=== PATIENT | female | born 1960 | race Caucasian/White ===

== ENCOUNTER 2016-07-11 21:18 | Emergency (ER) | payer SELFPAY ==
[~2016-07-11] VITALS: Ht 152.4 cm; Wt 50.0 kg
[~2016-07-11 21:18] MED LIST: DOXY100T PO; HYDR12.56 PO; HYDR25 PO; LISI-360 PO; PRED20 PO
[2016-07-11 21:24] VITALS: BP 206/104; PULSE 81; RESP 16; TEMP 98; O2SAT 96
[2016-07-11 21:39] VITALS: BP 198/93; PULSE 67; RESP 20; O2SAT 98
== END 2016-07-12 01:00 | disposition left against medical advice (07) ==
LOC: NED 21:18
DX: I10 Essential (primary) hypertension (principal)
CPT/HCPCS: 99281

== ENCOUNTER 2016-10-13 00:01 | Emergency (ER) | payer SELFPAY ==
[~2016-10-13] VITALS: Ht 157.5 cm; Wt 50.0 kg
[2016-10-13 00:10] VITALS: BP 139/70; PULSE 70; RESP 16; TEMP 97.4; O2SAT 100
[2016-10-13] MEDS ORDERED: ACET-898 (00:11)
[2016-10-13] MEDS ORDERED: METO50TA PO (00:11)
[2016-10-13] MEDS ORDERED: ALPR0.5T3 PO (00:11)
[2016-10-13] MEDS ORDERED: LISI40TA PO (00:11)
[2016-10-13] MEDS ORDERED: CLON0.1T PO (00:11)
[2016-10-13] MEDS ORDERED: CLON0.5T PO (00:11)
[2016-10-13] MEDS ORDERED: CHLO25TA2 PO (00:11)
[2016-10-13] MEDS ORDERED: SODIUM CHLOR 0.9% 1000 ML INJ 1,000 ML IV ONE (00:15)
--- NOTE | 2016-10-13 00:38 | PD ---
HPI Chief Complaint: Syncope/Near-Syncope Time Seen by Provider: 00:14 Travel History International Travel<30 days: No Contact w/Intl Traveler<30days: No Traveled to known affect area: No History of Present Illness HPI Patient is a 56-year-old female who presents to emergency room with complaints of syncopal episode. As per ems, patient spent the day outside in the sun on the beach today. Reports that she came home and began to drink alcohol. Reports that patient was sitting on the porch drinking a beer when she passed out. Family was able to catch patient prior to her fall. Patient did not suffer any trauma to her head/neck. Family reported that patient was hypotensive, when ems arrived on scene, patient was normotensive. Patient reports that she has been having problems of blood pressure medications for a while, reports that her blood pressure is either very high or very low, she has been self adjusting her medications and recently stopped taking her clonidine 0.1 mg. Denies any chest pain/sob. PFSH Past Medical History Diminished Hearing: No Hypertension: Yes ?: Not Menopausal: Yes Past Surgical History Cholecystectomy: Yes Social History Alcohol Use: Yes (OCCASIONAL) Tobacco Use: Yes (1/2 PPD) Substance Use: No Allergies-Medications (Allergen,Severity, Reaction): Coded Allergies: amoxicillin (Unverified Allergy, Severe, HIVES, 10/13/16) latex (Unverified Allergy, Severe, Shortness of Breath, 10/13/16) Reported Meds & Prescriptions Reported Meds & Active Scripts Active Reported Chlorthalidone 25 Mg Tab 25 Mg PO DAILY Acetaminophen Extra Strength (Acetaminophen) 500 Mg Tablet Clonazepam 0.5 Mg Tab 0.5 Mg PO BID Metoprolol Tartrate 50 Mg Tab 50 Mg PO BID Lisinopril 40 Mg Tab 40 Mg PO DAILY Alprazolam 0.5 Mg Tab 0.5 Mg PO BID PRN Clonidine (Clonidine HCl) 0.1 Mg Tab 0.1 Mg PO BID Review of Systems General / Constitutional: No: Fever Eyes: No: Visual changes HENT: No: Headaches Cardiovascular: Positive: Syncope, No: Chest Pain or Discomfort Respiratory: No: Shortness of Breath Gastrointestinal: No: Abdominal Pain Genitourinary: No: Dysuria Musculoskeletal: No: Pain Skin: No Rash Neurologic: No: Weakness Psychiatric: Positive: Substance Abuse, No: Depression Endocrine: No: Polydipsia Hematologic/Lymphatic: No: Easy Bruising Physical Exam Narrative GENERAL: Patient intoxicated in the emergency room SKIN: Focused skin assessment warm/dry. HEAD: Atraumatic. Normocephalic. EYES: Pupils equal and round. No scleral icterus. No injection or drainage. ENT: No nasal bleeding or discharge. Mucous membranes pink and moist. NECK: Trachea midline. No JVD. CARDIOVASCULAR: Regular rate and rhythm. No murmur appreciated. RESPIRATORY: No accessory muscle use. Clear to auscultation. Breath sounds equal bilaterally. GASTROINTESTINAL: Abdomen soft, non-tender, nondistended. Hepatic and splenic margins not palpable. MUSCULOSKELETAL: No obvious deformities. No clubbing. No cyanosis. No edema. NEUROLOGICAL: Awake and alert. No obvious cranial nerve deficits. Motor grossly within normal limits. Normal speech. PSYCHIATRIC: Patient intoxicated on evaluation Data Data Last Documented VS Vital Signs Date Time Temp Pulse Resp B/P Pulse Ox O2 Delivery O2 Flow Rate FiO2 10/13/16 00:10 97.4 70 16 139/70 100 Orders Complete Blood Count With Diff (10/13/16:14) Comprehensive Metabolic Panel (10/13/16 00:14) Urinalysis - C+S If Indicated (10/13/16 00:14) Oximetry (10/13/16 00:14) Iv Access Insert/Monitor (10/13/16:14) Ecg Monitoring (10/13/16 00:14) Drug Screen, Random Urine (10/13/16 00:14) Alcohol (Ethanol) (10/13/16 00:14) Electrocardiogram (10/13/16 00:14) B-Type Natriuretic Peptide (10/13/16 00:14) Ckmb (Isoenzyme) Profile (10/13/16 00:14) Magnesium (Mg) (10/13/16 00:14) Prothrombin Time / Inr (Pt) (10/13/16 00:14) Act Partial Throm Time (Ptt) (10/13/16 00:14) Troponin I (10/13/16 00:14) Chest, Single Ap (10/13/16 00:14) Ct Brain W/O Iv Contrast(Rout) (10/13/16 00:14) Sodium Chlor 0.9% 1000 Ml Inj (Ns 1000 M (10/13/16 00:15) CKMB (10/13/16 00:22) CKMB% (10/13/16 00:22) Potassium Chloride (Kcl) (10/13/16 01:45) Potassium Chlor 20 Meq Premix (Kcl 20 Me (10/13/16 01:45) Labs Laboratory Tests Test 10/13/16 10/13/16 10/13/16 00:14 00:22 02:33 White Blood Count 6.3 TH/MM3 Red Blood Count 3.60 MIL/MM3 Hemoglobin 12.0 GM/DL Hematocrit 34.0 % Mean Corpuscular Volume 94.4 FL Mean Corpuscular Hemoglobin 33.3 PG Mean Corpuscular Hemoglobin 35.3 % Concent Red Cell Distribution Width 14.0 % Platelet Count 309 TH/MM3 Mean Platelet Volume 6.8 FL Neutrophils (%) (Auto) 43.5 % Lymphocytes (%) (Auto) 43.5 % Monocytes (%) (Auto) 9.3 % Eosinophils (%) (Auto) 2.5 % Basophils (%) (Auto) 1.2 % Neutrophils # (Auto) 2.8 TH/MM3 Lymphocytes # (Auto) 2.7 TH/MM3 Monocytes # (Auto) 0.6 TH/MM3 Eosinophils # (Auto) 0.2 TH/MM3 Basophils # (Auto) 0.1 TH/MM3 CBC Comment DIFF FINAL Differential Comment Prothrombin Time 11.2 SEC Prothromb Time International 1.0 RATIO Ratio Activated Partial 27.5 SEC Thromboplast Time Sodium Level 127 MEQ/L Potassium Level 2.7 MEQ/L Chloride Level 88 MEQ/L Carbon Dioxide Level 24.1 MEQ/L Anion Gap 15 MEQ/L Blood Urea Nitrogen 8 MG/DL Creatinine 0.87 MG/DL Estimat Glomerular Filtration 68 ML/MIN Rate Random Glucose 93 MG/DL Calcium Level 8.1 MG/DL Magnesium Level 1.6 MG/DL Total Bilirubin 0.4 MG/DL Aspartate Amino Transf 35 U/L (AST/SGOT) Alanine Aminotransferase 19 U/L (ALT/SGPT) Alkaline Phosphatase 89 U/L Total Creatine Kinase 222 U/L Creatine Kinase MB 5.3 NG/ML Creatine Kinase MB % 2.4 % Troponin I 0.02 NG/ML B-Type Natriuretic Peptide 49 PG/ML Total Protein 6.4 GM/DL Albumin 3.0 GM/DL Ethyl Alcohol Level 175 MG/DL Urine Color LIGHT-YELLOW Urine Turbidity CLEAR Urine pH 6.5 Urine Specific [place] 1.005 Urine Protein NEG mg/dL Urine Glucose (UA) NEG mg/dL Urine Ketones NEG mg/dL Urine Occult Blood NEG Urine Nitrite NEG Urine Bilirubin NEG Urine Urobilinogen LESS THAN 2.0 MG/DL Urine Leukocyte Esterase MOD Urine RBC 1 /hpf Urine WBC 1 /hpf Urine Squamous Epithelial 1 /hpf Cells Urine Bacteria RARE /hpf Microscopic Urinalysis Comment CULT NOT INDICATED MDM Medical Decision Making Medical Screen Exam Complete: Yes Emergency Medical Condition: Yes Interpretation(s) EKG at 0014: NSR at 66bpm, qt/qtc: 460/474, 1st degree av block, no acute changes, Vital Signs Date Time Temp Pulse Resp B/P Pulse Ox O2 Delivery O2 Flow Rate FiO2 10/13/16 00:10 97.4 70 16 139/70 100 Differential Diagnosis Differential includes electrolyte abnormality, arrhythmia, ACS, alcohol intoxication, dehydration, uti Narrative Course Patient is a 56 year old female who presents to ER with c/o of syncopal episode. As per EMS, patient has been outside on the beach all day, reports that she came home and began drinking alcohol. Patient had a witnessed syncopal episode while on her porch, her family did catch her prior to her fall. Patient has been self adjusting her hypertension medications and recently stopped taking her clonidine. patient intoxicated in the ER. she was placed on a playground monitor upon arrival to ER. EKG obtained. plan to check labs and monitor on playground monitor Vital Signs Date Time Temp Pulse Resp B/P Pulse Ox O2 Delivery O2 Flow Rate FiO2 10/13/16 00:10 97.4 70 16 139/70 100 Laboratory Tests Test 10/13/16 10/13/16 10/13/16 00:14 00:22 02:33 White Blood Count 6.3 TH/MM3 (4.0-11.0) Red Blood Count 3.60 MIL/MM3 (4.00-5.30) Hemoglobin 12.0 GM/DL (11.6-15.3) Hematocrit 34.0 % (35.0-46.0) Mean Corpuscular Volume 94.4 FL (80.0-100.0) Mean Corpuscular Hemoglobin 33.3 PG (27.0-34.0) Mean Corpuscular Hemoglobin 35.3 % Concent (32.0-36.0) Red Cell Distribution Width 14.0 % (11.6-17.2) Platelet Count 309 TH/MM3 (150-450) Mean Platelet Volume 6.8 FL (7.0-11.0) Neutrophils (%) (Auto) 43.5 % (16.0-70.0) Lymphocytes (%) (Auto) 43.5 % (9.0-44.0) Monocytes (%) (Auto) 9.3 % (0.0-8.0) Eosinophils (%) (Auto) 2.5 % (0.0-4.0) Basophils (%) (Auto) 1.2 % (0.0-2.0) Neutrophils # (Auto) 2.8 TH/MM3 (1.8-7.7) Lymphocytes # (Auto) 2.7 TH/MM3 (1.0-4.8) Monocytes # (Auto) 0.6 TH/MM3 (0-0.9) Eosinophils # (Auto) 0.2 TH/MM3 (0-0.4) Basophils # (Auto) 0.1 TH/MM3 (0-0.2) CBC Comment DIFF FINAL Differential Comment Prothrombin Time 11.2 SEC (9.8-11.6) Prothromb Time International 1.0 RATIO Ratio Activated Partial 27.5 SEC Thromboplast Time (24.3-30.1) Sodium Level 127 MEQ/L (136-145) Potassium Level 2.7 MEQ/L (3.5-5.1) Chloride Level 88 MEQ/L (98-107) Carbon Dioxide Level 24.1 MEQ/L (21.0-32.0) Anion Gap 15 MEQ/L (5-15) Blood Urea Nitrogen 8 MG/DL (7-18) Creatinine 0.87 MG/DL (0.50-1.00) Estimat Glomerular Filtration 68 ML/MIN (>89) Rate Random Glucose 93 MG/DL (74-106) Calcium Level 8.1 MG/DL (8.5-10.1) Magnesium Level 1.6 MG/DL (1.5-2.5) Total Bilirubin 0.4 MG/DL (0.2-1.0) Aspartate Amino Transf 35 U/L (15-37) (AST/SGOT) Alanine Aminotransferase 19 U/L (10-53) (ALT/SGPT) Alkaline Phosphatase 89 U/L (45-117) Total Creatine Kinase 222 U/L (26-192) Creatine Kinase MB 5.3 NG/ML (0.5-3.6) Creatine Kinase MB % 2.4 % (0.0-4.0) Troponin I 0.02 NG/ML (0.02-0.05) B-Type Natriuretic Peptide 49 PG/ML (0-100) Total Protein 6.4 GM/DL (6.4-8.2) Albumin 3.0 GM/DL (3.4-5.0) Ethyl Alcohol Level 175 MG/DL (0-5) Urine Color LIGHT-YELLOW (YELLW/STRAW) Urine Turbidity CLEAR (CLEAR) Urine pH 6.5 (5.0-8.5) Urine Specific [place] 1.005 (1.002-1.035) Urine Protein NEG mg/dL (NEG-TRACE) Urine Glucose (UA) NEG mg/dL (NEG) Urine Ketones NEG mg/dL (NEG) Urine Occult Blood NEG (NEG) Urine Nitrite NEG (NEG) Urine Bilirubin NEG (NEG) Urine Urobilinogen LESS THAN 2.0 MG/DL (LESS THAN 2.0) Urine Leukocyte Esterase MOD (NEG) Urine RBC 1 /hpf (0-3) Urine WBC 1 /hpf (0-5) Urine Squamous Epithelial 1 /hpf (0-5) Cells Urine Bacteria RARE /hpf (NONE) Microscopic Urinalysis Comment CULT NOT INDICATED Patient refusing further workup as "I have had everything done 2 months ago and it was all negative." I reviewed why all the studies ordered are necessary - patient refuses these studies. I did review resulted labs with her, she will return to ER as needed and will follow up with pcp. AMA: The risks of leaving against medical advice without further evaluation treatment were discussed with the patient. These risks include cardiac dysfunction, cardiac dysrhythmia, possible heart attack, possible stroke or . The patient indicated understanding of these risks and appeared to have the capacity to make this decision. Diagnosis Primary Impression: Left against medical advice Additional Impressions: Syncope Hypokalemia Patient Instructions: General Instructions Additional Instructions: Please follow up with your primary care doctor as soon as possible Return to ER as needed or if symptoms return Disposition: 07 AGAINST MEDICAL ADVICE Condition: Serious DeepakKenyettaKierra L DO Oct 13, 2016 00:38
[2016-10-13 00:49] LABS: AUTOMATED NEUTROPHIL # 2.8 TH/MM3 (1.8-7.7); BASOPHIL # 0.1 TH/MM3 (0-0.2); BASOPHIL % 1.2 % (0.0-2.0); EOSINOPHIL # 0.2 TH/MM3 (0-0.4); EOSINOPHIL % 2.5 % (0.0-4.0); HEMO FLAGS DIFF FINAL; LYMPH % 43.5 % (9.0-44.0); LYMPHOCYTE # 2.7 TH/MM3 (1.0-4.8); MEAN CELL VOLUME 94.4 FL (80.0-100.0); MEAN CORPUSCULAR HEMOGLOBIN 33.3 PG (27.0-34.0); MEAN CORPUSCULAR HGB CONC 35.3 % (32.0-36.0); MONO % 9.3 % (0.0-8.0); NEUT % 43.5 % (16.0-70.0); PLATELET COUNT 309 TH/MM3 (150-450); WHITE BLOOD COUNT 6.3 TH/MM3 (4.0-11.0)
[2016-10-13 00:59] LABS: APTT (PATIENT) 27.5 SEC (24.3-30.1); PROTHROMBIN TIME - PATIENT 11.2 SEC (9.8-11.6)
[2016-10-13 01:30] LABS: ALKALINE PHOSPHATASE 89 U/L (45-117); ALT (GPT) 19 U/L (10-53); ANION GAP 15 MEQ/L (5-15); AST (GOT) 35 U/L (15-37); BICARBONATE 24.1 MEQ/L (21.0-32.0); BLOOD UREA NITROGEN 8 MG/DL (7-18); CHLORIDE 88 MEQ/L (98-107); CREATINE KINASE 222 U/L (26-192); GLOMERULAR FILTRATION RATE 68 ML/MIN (>89); MAGNESIUM 1.6 MG/DL (1.5-2.5); SODIUM (NA) 127 MEQ/L (136-145); TOTAL BILIRUBIN ADULT 0.4 MG/DL (0.2-1.0)
[2016-10-13 01:33] LABS: ALCOHOL 175 MG/DL (0-5)
[2016-10-13 01:36] LABS: POTASSIUM 2.7 MEQ/L (3.5-5.1)
[2016-10-13] MEDS ORDERED: POTASSIUM CHLORIDE 10 MEQ CONTROLLED RELEASE TAB PO ONE (01:45)
[2016-10-13 01:50] LABS: CKMB 5.3 NG/ML (0.5-3.6)
--- NOTE | 2016-10-13 01:52 | RADRPT ---
EXAM DATE/TIME: 10/13/2016 01:33 [facility] COMPARISON: CHEST SINGLE AP, December 16, 2013, 15:27. INDICATIONS : Chest pain all day MEDICAL HISTORY : Hypertension. SURGICAL HISTORY : Cholecystectomy. ENCOUNTER: Initial ACUITY: 1 day PAIN SCORE: Non-responsive. LOCATION: Bilateral chest FINDINGS: A single view of the chest demonstrates the lungs to be symmetrically aerated without evidence of mas s, infiltrate or effusion. Minimal atelectatic changes above the right hemidiaphragm laterally. No e ffusions. Heart size is normal. Osseous structures are intact. Surgical clips in the right upper abdo tom quadrant are characteristic of prior cholecystectomy. CONCLUSION: 1. Minimal atelectatic changes laterally in the right lower lobe. 2. Lungs are otherwise clear. No effusions. Antwon Regalado MD on October 13, 2016 at 1:49 Board Certified Radiologist. This report was verified electronically.
[2016-10-13] MEDS: POTASSIUM CHLOR 20 MEQ PREMIX 100 ML IV SCH ×2 (02:33→04:47)
[2016-10-13 02:44] LABS: BACTERIA, URINE RARE /hpf; BLOOD, URINE NEG (NEG); COMMENT (UR) CULT NOT INDICATED; CULTURE IF INDICATED CULT NOT INDICATED; GLUCOSE,URINE NEG (NEG); KETONE, URINE NEG (NEG); NITRITE,URINE NEG (NEG); PH, URINE 6.5 (5.0-8.5); SQUAMOUS EPITHELIAL CELL URINE 1 /hpf (0-5); URINE COLOR LIGHT-YELLOW (YELLW/STRAW)
[2016-10-13 03:15] VITALS: BP 100/65; PULSE 70; RESP 18; O2SAT 97
--- NOTE | 2016-10-13 15:11 | EKG ---
Date Performed: 10/13/2016 Time Performed: 00:14:03 PTAGE: 56 years EKG: Sinus rhythm WITH FIRST DEGREE AV BLOCK MINIMAL VOLTAGE CRITERIA FOR LVH, CONSIDER NORMAL VARIANT PROLONGED QT IN TERVAL Compared to previous tracing, QT interval is somewhat more prolonged and MI interval is somewh at longer ABNORMAL ECG PREVIOUS TRACING : 09/29/2015 22.25 DOCTOR: Monty Watson Interpretating Date/Time 10/13/2016 15:10:13
== END 2016-10-13 06:30 | disposition left against medical advice (07) ==
LOC: NEPC 00:01
DX: R55 Syncope and collapse (principal); E87.6 Hypokalemia; I10 Essential (primary) hypertension
CPT/HCPCS: 71010; 80053; 80307; 81001; 82550; 82552; 83735; 83880; 84484; 85025; 85610; 85730; 93005; 96360; 96361; 99285; J3480; J7030

== ENCOUNTER 2016-11-29 22:07 | Emergency (ER) | payer SELFPAY ==
[~2016-11-29] VITALS: Ht 157.5 cm; Wt 50.0 kg
[~2016-11-29 22:07] MED LIST changes: +ACET-898; +ALPR0.5T3 PO; +CHLO25TA2 PO; +CLON0.1T PO; +CLON0.5T PO; -DOXY100T PO; -HYDR12.56 PO; -HYDR25 PO; -LISI-360 PO; +LISI40TA PO; +METO50TA PO; -PRED20 PO
[2016-11-29 22:19] VITALS: BP 228/114; PULSE 80; RESP 16; TEMP 98.3; O2SAT 98
[2016-11-29 23:00] VITALS: BP 208/109; PULSE 71; RESP 16; O2SAT 96
[2016-11-29] MEDS ORDERED: FLUO10TA PO (23:09)
--- NOTE | 2016-11-29 23:26 | PD ---
HPI Chief Complaint: Hypertension Time Seen by Provider: 22:59 Travel History International Travel<30 days: No Contact w/Intl Traveler<30days: No Traveled to known affect area: No History of Present Illness HPI The patient is a 56-year-old female who presents to the emergency department for 3 days of headache and elevated blood pressure. The patient has a history of hypertension and was previously being treated by her physician, Dr. José. The patient is on multiple medications for her blood pressure, however, states she lost approximately 20-30 pounds. The patient then saw a new physician, Dr. Eddy, who reviewed her medications and took her off several of her blood pressure medications. The patient states she was feeling well for approximately one month, however, 3 days ago developed a headache. Headache is located in the posterior aspect of the head, throbbing and dull, and associated with generalized weakness. The patient denies any chest pain, shortness breath , nausea, vomiting, or abdominal pain. She denies any change in vision. The patient is currently on lisinopril and metoprolol. The patient cannot recall the previous medication she was on, however, does state one of was a diuretic. Patient denies any acute focal deficits. PFSH Past Medical History Cardiovascular Problems: Yes (HTN) Diminished Hearing: No Hypertension: Yes ?: Not Menopausal: Yes Past Surgical History Cholecystectomy: Yes Social History Alcohol Use: Yes (1-2 BEERS DAILY) Tobacco Use: Yes (1/2 PPD) Substance Use: No Allergies-Medications (Allergen,Severity, Reaction): Coded Allergies: amoxicillin (Unverified Allergy, Severe, HIVES, 11/29/16) latex (Unverified Allergy, Severe, Shortness of Breath, 11/29/16) Reported Meds & Prescriptions Reported Meds & Active Scripts Active Reported Fluoxetine (Fluoxetine HCl) 10 Mg Tab 10 Mg PO DAILY Metoprolol Tartrate 50 Mg Tab 50 Mg PO BID Lisinopril 40 Mg Tab 40 Mg PO DAILY Review of Systems Except as stated in HPI: all other systems reviewed are Neg Eyes: No: Blurred Vision HENT: Positive: Headaches, No: Neck Pain Cardiovascular: No: Chest Pain or Discomfort Respiratory: No: Shortness of Breath Gastrointestinal: No: Nausea, Vomiting Musculoskeletal: Positive: Weakness Neurologic: Positive: Weakness Physical Exam Narrative GENERAL: Awake, alert, nontoxic-appearing 36 year-old female who appears her stated age and is in no acute respiratory distress. SKIN: Focused skin assessment warm/dry. HEAD: Atraumatic. Normocephalic. EYES: Pupils equal and round. Pupils are 3 mm is bilateral and reactive. EOMs are intact. Patient is able to see fingers at a distance of 2 feet without difficulty. ENT: No nasal bleeding or discharge. Mucous membranes pink and moist. Breath smells of cigarettes. NECK: Trachea midline. No JVD. CARDIOVASCULAR: Regular rate and rhythm. No murmur appreciated. RESPIRATORY: No accessory muscle use. Clear to auscultation. Breath sounds equal bilaterally. GASTROINTESTINAL: Abdomen soft, non-tender, nondistended. MUSCULOSKELETAL: No obvious deformities. No clubbing. No cyanosis. No edema. NEUROLOGICAL: Awake and alert. No obvious cranial nerve deficits. Motor grossly within normal limits. Normal speech. Nonfocal on exam. Able to follow commands without difficulty. PSYCHIATRIC: Odd affect. Data Data Last Documented VS Vital Signs Date Time Temp Pulse Resp B/P (MAP) Pulse Ox O2 Delivery O2 Flow Rate FiO2 11/30/16 01:36 50 16 149/68 (95) 94 Nasal Cannula 2.00 11/29/16 22:[address] Brain W/O Iv Contrast(Rout) (11/29/16 ) Complete Blood Count With Diff (11/29/16 23:18) Comprehensive Metabolic Panel (11/29/16 23:18) Creatine Kinase (Cpk) (11/29/16 23:18) Troponin I (11/29/16 23:18) Electrocardiogram (11/29/16 ) Labetalol Inj (Trandate Inj) (11/29/16 23:30) Morphine Inj (Morphine Inj) (11/29/16 23:30) Prochlorperazine Inj (Compazine Inj) (11/29/16 23:30) Diphenhydramine Inj (Benadryl Inj) (11/29/16 23:30) Sodium Chlorid 0.9% 500 Ml Inj (Ns 500 M (11/29/16 23:30) Amlodipine (Norvasc) (11/30/16 00:45) Sodium Chlor 0.9% 1000 Ml Inj (Ns 1000 M (11/30/16 00:45) Sodium Chlor 0.9% 1000 Ml Inj (Ns 1000 M (11/30/16 01:30) Labs Laboratory Tests Test 11/29/16 23:30 White Blood Count 6.7 TH/MM3 Red Blood Count 4.17 MIL/MM3 Hemoglobin 14.2 GM/DL Hematocrit 41.1 % Mean Corpuscular Volume 98.7 FL Mean Corpuscular Hemoglobin 34.0 PG Mean Corpuscular Hemoglobin Concent 34.5 % Red Cell Distribution Width 14.1 % Platelet Count 331 TH/MM3 Mean Platelet Volume 7.0 FL Neutrophils (%) (Auto) 44.8 % Lymphocytes (%) (Auto) 41.0 % Monocytes (%) (Auto) 8.0 % Eosinophils (%) (Auto) 5.3 % Basophils (%) (Auto) 0.9 % Neutrophils # (Auto) 3.0 TH/MM3 Lymphocytes # (Auto) 2.7 TH/MM3 Monocytes # (Auto) 0.5 TH/MM3 Eosinophils # (Auto) 0.4 TH/MM3 Basophils # (Auto) 0.1 TH/MM3 CBC Comment DIFF FINAL Differential Comment Blood Urea Nitrogen 8 MG/DL Creatinine 0.86 MG/DL Random Glucose 103 MG/DL Total Protein 8.8 GM/DL Albumin 4.0 GM/DL Calcium Level 9.5 MG/DL Alkaline Phosphatase 167 U/L Aspartate Amino Transf (AST/SGOT) 60 U/L Alanine Aminotransferase (ALT/SGPT) 36 U/L Total Bilirubin 0.3 MG/DL Sodium Level 132 MEQ/L Potassium Level 3.3 MEQ/L Chloride Level 97 MEQ/L Carbon Dioxide Level 27.1 MEQ/L Anion Gap 8 MEQ/L Estimat Glomerular Filtration Rate 69 ML/MIN Total Creatine Kinase 129 U/L Troponin I LESS THAN 0.02 NG/ML MDM Medical Decision Making Medical Screen Exam Complete: Yes Emergency Medical Condition: Yes Medical Record Reviewed: Yes Interpretation(s) EKG reveals sinus bradycardia with a heart rate of 50. Voltage criteria for LVH. CT of the brain reveals normal examination Last Impressions Head CT 11/29/16 0000 Signed Impressions: Service Date/Time: Tuesday, November 29, 2016 23:27 - CONCLUSION: Normal examination. Alton Rogers Jr., MD Laboratory Tests Test 11/29/16 23:30 White Blood Count 6.7 TH/MM3 Red Blood Count 4.17 MIL/MM3 Hemoglobin 14.2 GM/DL Hematocrit 41.1 % Mean Corpuscular Volume 98.7 FL Mean Corpuscular Hemoglobin 34.0 PG Mean Corpuscular Hemoglobin Concent 34.5 % Red Cell Distribution Width 14.1 % Platelet Count 331 TH/MM3 Mean Platelet Volume 7.0 FL Neutrophils (%) (Auto) 44.8 % Lymphocytes (%) (Auto) 41.0 % Monocytes (%) (Auto) 8.0 % Eosinophils (%) (Auto) 5.3 % Basophils (%) (Auto) 0.9 % Neutrophils # (Auto) 3.0 TH/MM3 Lymphocytes # (Auto) 2.7 TH/MM3 Monocytes # (Auto) 0.5 TH/MM3 Eosinophils # (Auto) 0.4 TH/MM3 Basophils # (Auto) 0.1 TH/MM3 CBC Comment DIFF FINAL Differential Comment Blood Urea Nitrogen 8 MG/DL Creatinine 0.86 MG/DL Random Glucose 103 MG/DL Total Protein 8.8 GM/DL Albumin 4.0 GM/DL Calcium Level 9.5 MG/DL Alkaline Phosphatase 167 U/L Aspartate Amino Transf (AST/SGOT) 60 U/L Alanine Aminotransferase (ALT/SGPT) 36 U/L Total Bilirubin 0.3 MG/DL Sodium Level 132 MEQ/L Potassium Level 3.3 MEQ/L Chloride Level 97 MEQ/L Carbon Dioxide Level 27.1 MEQ/L Anion Gap 8 MEQ/L Estimat Glomerular Filtration Rate 69 ML/MIN Total Creatine Kinase 129 U/L Troponin I LESS THAN 0.02 NG/ML Differential Diagnosis Differential diagnosis includes hypertension, hypertensive urgency, hypertensive emergency, intracranial hemorrhage, subarachnoid hemorrhage, noncompliance, tension headache, migraine. Narrative Course IV was established, labs are drawn and sent, and the patient was placed on cardiac telemetry monitoring and continuous pulse oximetry monitoring. EKG was ordered and interpreted. CT the brain was obtained. The patient received labetalol, morphine, Compazine, Benadryl, and IV fluids. The patient's CT the brain is negative. The patient's blood pressure did drop after medications were given to a systolic in the 80s. The patient was administered IV fluids, she was sleeping and resting comfortably. Her pressure came back up into the 160s/90s, she is stable for outpatient follow-up. She will be provided a copy of her CT results and lab results at discharge. The patient's potassium was slightly low, was replaced orally. Diagnosis Primary Impression: Hypertensive urgency Additional Impressions: Cephalgia Qualified Codes: R51 - Headache Hypokalemia Patient Instructions: General Instructions Additional Instructions: Please provide a patient a copy of her CT results and lab results at discharge. Follow-up with her primary physician. Return if symptoms worsen or progress. Med/Other Pt SpecificInfo: No Change to Meds Disposition: 01 DISCHARGE HOME Condition: Stable Reg Moran MD Nov 29, 2016 23:26
[2016-11-29] MEDS ORDERED: LABETALOL HCL 100 MG/20 ML VIAL IV PUSH ONE (23:30)
[2016-11-29] MEDS ORDERED: SODIUM CHLORID 0.9% 500 ML INJ 500 ML IV ONE (23:30)
[2016-11-29] MEDS ORDERED: diphenhydrAMINE HCL 50 MG/ML VIAL IV PUSH ONE (23:30)
[2016-11-29] MEDS ORDERED: MORPHINE SULFATE 4 MG/ML INJ IV PUSH ONE (23:30)
[2016-11-29] MEDS ORDERED: PROCHLORPERAZINE INJ 10 MG/2 ML VIAL IV PUSH ONE (23:30)
[2016-11-29 23:42] LABS: BASOPHIL # 0.1 TH/MM3 (0-0.2); BASOPHIL % 0.9 % (0.0-2.0); EOSINOPHIL # 0.4 TH/MM3 (0-0.4); EOSINOPHIL % 5.3 % (0.0-4.0); HEMATOCRIT 41.1 % (35.0-46.0); HEMO FLAGS DIFF FINAL; LYMPHOCYTE # 2.7 TH/MM3 (1.0-4.8); MEAN CELL VOLUME 98.7 FL (80.0-100.0); MEAN CORPUSCULAR HGB CONC 34.5 % (32.0-36.0); NEUT % 44.8 % (16.0-70.0); PLATELET COUNT 331 TH/MM3 (150-450); RED BLOOD COUNT 4.17 MIL/MM3 (4.00-5.30); RED CELL DISTRIBUTION WIDTH 14.1 % (11.6-17.2); WHITE BLOOD COUNT 6.7 TH/MM3 (4.0-11.0)
--- NOTE | 2016-11-29 23:50 | RADRPT ---
EXAM DATE/TIME: 11/29/2016 23:27 [facility] COMPARISON: No previous studies available for comparison. INDICATIONS : Headaches with high blood pressure past 3 days. RADIATION DOSE: 56.35 CTDIvol (mGy) MEDICAL HISTORY : Hypertension. SURGICAL HISTORY : Cholecystectomy. ENCOUNTER: Initial ACUITY: 3 days PAIN SCALE: 10/10 LOCATION: Bilateral cranial TECHNIQUE: Multiple contiguous axial images were obtained of the head. Using automated exposure control and adj ustment of the mA and/or kV according to patient size, radiation dose was kept as low as reasonably a chievable to obtain optimal diagnostic quality images. DICOM format image data is available electro nically for review and comparison. FINDINGS: CEREBRUM: The ventricles are normal for age. No evidence of midline shift, mass lesion, hemorrhage or acute in farction. No extra-axial fluid collections are seen. POSTERIOR FOSSA: The cerebellum and brainstem are intact. The 4th ventricle is midline. The cerebellopontine angle i s unremarkable. EXTRACRANIAL: The visualized portion of the orbits is intact. SKULL: The calvaria is intact. No evidence of skull fracture. CONCLUSION: Normal examination. Alton Rogers Jr., MD on November 29, 2016 at 23:48 Board Certified Radiologist. This report was verified electronically.
[2016-11-29 23:55] VITALS: BP 188/102; PULSE 64; RESP 16; O2SAT 96
[2016-11-30] VITALS: BP 145/65; PULSE 60
[2016-11-30 00:07] LABS: ALT (GPT) 36 U/L (10-53); ANION GAP 8 MEQ/L (5-15); AST (GOT) 60 U/L (15-37); BICARBONATE 27.1 MEQ/L (21.0-32.0); BLOOD UREA NITROGEN 8 MG/DL (7-18); CHLORIDE 97 MEQ/L (98-107); GLOMERULAR FILTRATION RATE 69 ML/MIN (>89); POTASSIUM 3.3 MEQ/L (3.5-5.1); SODIUM (NA) 132 MEQ/L (136-145)
[2016-11-30 00:11] LABS: ALKALINE PHOSPHATASE 167 U/L (45-117); CREATINE KINASE 129 U/L (26-192); TOTAL BILIRUBIN ADULT 0.3 MG/DL (0.2-1.0)
[2016-11-30 00:15] VITALS: BP 97/52; PULSE 58
[2016-11-30 00:42] VITALS: BP 85/52; PULSE 63
[2016-11-30] MEDS ORDERED: SODIUM CHLOR 0.9% 1000 ML INJ 1,000 ML IV ONE ×2 (00:45→01:30)
[2016-11-30 01:29] VITALS: BP 167/120; PULSE 60; RESP 16; O2SAT 92
[2016-11-30 01:36] VITALS: BP 149/68; PULSE 50; RESP 16; O2SAT 94
[2016-11-30] MEDS ORDERED: POTASSIUM CHLORIDE 20 MEQ CONTROLLED RELEASE TAB PO ONE (01:45)
[2016-11-30 01:51] VITALS: BP 116/57; PULSE 57; RESP 16; O2SAT 98
--- NOTE | 2016-11-30 14:24 | EKG ---
Date Performed: 11/29/2016 Time Performed: 23:49:25 PTAGE: 56 years EKG: SINUS BRADYCARDIA VOLTAGE CRITERIA FOR LVH ABNORMAL ECG PREVIOUS TRACING : 10/13/2016 00.14 DOCTOR: Nadir Block Interpretating Date/Time 11/30/2016 14:17:12
== END 2016-11-30 02:11 | disposition home or self-care (01) ==
LOC: NEPE 22:07
DX: R51 Headache (principal); R53.1 Weakness; E87.6 Hypokalemia; I10 Essential (primary) hypertension; R00.1 Bradycardia, unspecified; F17.200 Nicotine dependence, unspecified, uncomplicated; Z79.899 Other long term (current) drug therapy; Z88.0 Allergy status to penicillin
CPT/HCPCS: 70450; 80053; 82550; 84484; 85025; 93005; 96361; 96374; 96375; 99285; J0780; J1200; J2270; J7030; J7040

== ENCOUNTER 2017-07-22 14:32 | Emergency (ER) | payer OTHER ==
[~2017-07-22] VITALS: Ht 157.5 cm; Wt 56.2 kg
[~2017-07-22 14:32] MED LIST changes: -ACET-898; -ALPR0.5T3 PO; -CHLO25TA2 PO; -CLON0.1T PO; -CLON0.5T PO; +FLUO10TA PO
[2017-07-22 14:51] VITALS: BP 212/98; PULSE 104; RESP 18; TEMP 98; O2SAT 99
--- NOTE | 2017-07-22 16:12 | PD ---
HPI Chief Complaint: Hypertension Time Seen by Provider: 16:10 Travel History International Travel<30 days: No Contact w/Intl Traveler<30days: No Traveled to known affect area: No History of Present Illness HPI This 57-year-old female was told to come here for treatment of hypertension. She has been having back pain since Friday. She had while at work she was in an awkward position and since then she has been having pain in her left lumbar area. The pain is quite severe. She has not been able to sleep and she feels like she is walking crooked. She went to the chiropractor today. They measured her blood pressure and was elevated and told her to come here. She has a history of hypertension. She takes lisinopril 40 mg daily she has been on other medications in the past PFSH Past Medical History Cardiovascular Problems: Yes Diminished Hearing: No Hypertension: Yes ?: Not Menopausal: Yes Past Surgical History Cholecystectomy: Yes Social History Alcohol Use: Yes (1-2 BEERS DAILY) Tobacco Use: Yes (1/2 PPD) Substance Use: No Allergies-Medications (Allergen,Severity, Reaction): Coded Allergies: amoxicillin (Unverified Allergy, Severe, HIVES, 07/22/17) latex (Unverified Allergy, Severe, Shortness of Breath, 07/22/17) Reported Meds & Prescriptions Reported Meds & Active Scripts Active Reported Lisinopril 40 Mg Tab 40 Mg PO DAILY Physical Exam Narrative GENERAL: Well-developed female SKIN: Focused skin assessment warm/dry. HEAD: Atraumatic. Normocephalic. EYES: Pupils equal and round. No scleral icterus. No injection or drainage. ENT: No nasal bleeding or discharge. Mucous membranes pink and moist. NECK: Trachea midline. No JVD. CARDIOVASCULAR: Regular rate and rhythm. No murmur appreciated. RESPIRATORY: No accessory muscle use. Clear to auscultation. Breath sounds equal bilaterally. GASTROINTESTINAL: Abdomen soft, non-tender, nondistended. Hepatic and splenic margins not palpable. MUSCULOSKELETAL: No obvious deformities. No clubbing. No cyanosis. No edema. He does have tenderness in the left sacroiliac area NEUROLOGICAL: Awake and alert. No obvious cranial nerve deficits. Motor grossly within normal limits. Normal speech. PSYCHIATRIC: Appropriate mood and affect; insight and judgment normal. Data Data Last Documented VS Vital Signs Date Time Temp Pulse Resp B/P (MAP) Pulse Ox O2 Delivery O2 Flow Rate FiO2 07/22/17 16:24 76 20 171/77 (108) 96 07/22/17 14:51 98.0 Orders Orders Basic Metabolic Panel (Bmp) (07/22/17 16:10) Acetamin-Hydrocod 325-5 Mg ([place]our 5-325 (07/22/17 16:15) Clonidine (Catapres) (07/22/17 16:15) Labs Laboratory Tests Test 07/22/17 16:25 Blood Urea Nitrogen 18 MG/DL Creatinine 1.10 MG/DL Random Glucose 102 MG/DL Calcium Level 10.1 MG/DL Sodium Level 138 MEQ/L Potassium Level 4.1 MEQ/L Chloride Level 103 MEQ/L Carbon Dioxide Level 28.4 MEQ/L Anion Gap 7 MEQ/L Estimat Glomerular Filtration Rate 51 ML/MIN MDM Medical Decision Making Medical Screen Exam Complete: Yes Emergency Medical Condition: Yes Medical Record Reviewed: Yes Differential Diagnosis Differential includes lumbar strain, hypertension, hypokalemia Narrative Course Patient says she has had issues with hypokalemia in the past so we checked her blood in her potassium is normal. Her blood pressure has come down during a period of observation without any medication. She is uncomfortable with her back pain I gave Lortab which did not provide much relief. I will prescribe some Flexeril and have recommended that she take anti-inflammatory medication. Diagnosis Primary Impression: Back pain Additional Impression: Hypertension Disposition: 01 DISCHARGE HOME Condition: Stable Todd Bell MD July 22, 2017 16:12
[2017-07-22] MEDS ORDERED: ACETAMINOPHEN/HYDROcodone 325 MG/5 MG TAB PO ONE (16:15)
[2017-07-22] MEDS ORDERED: cloNIDine HCL 0.1 MG TAB PO ONE (16:15)
[2017-07-22 16:24] VITALS: BP 171/77; PULSE 76; RESP 20; O2SAT 96
[2017-07-22 16:44] LABS: BICARBONATE 28.4 MEQ/L (21.0-32.0); CALCIUM 10.1 MG/DL (8.5-10.1)
[2017-07-22 16:48] LABS: CREATININE 1.1 MG/DL (0.50-1.00)
[2017-07-22] MEDS ORDERED: CYCL10TA PO (17:21)
[2017-07-22 17:43] VITALS: BP 178/76; PULSE 89; RESP 20; O2SAT 97
== END 2017-07-22 17:55 | disposition home or self-care (01) ==
LOC: PHED 14:32
DX: M54.9 Dorsalgia, unspecified (principal); I10 Essential (primary) hypertension; E87.6 Hypokalemia; F17.200 Nicotine dependence, unspecified, uncomplicated; Z88.0 Allergy status to penicillin; Z79.899 Other long term (current) drug therapy
CPT/HCPCS: 80048; 99283